=== PATIENT | female | born 1990 | race Caucasian/White ===

== ENCOUNTER 2017-08-02 20:03 | Emergency (ER) | payer OTHER ==
[~2017-08-02] VITALS: Ht 165.1 cm; Wt 99.8 kg
[~2017-08-02 20:03] MED LIST: BENADRYL25 MG PO; PEPCID20 M1 PO; PREDNISONE10 M2 PO
[2017-08-02 20:28] VITALS: BP 119/79
== END 2017-08-02 22:21 | disposition admitted as inpatient to this hospital (09) ==
LOC: ERH 20:03
DX: R10.2 Pelvic and perineal pain (principal)
CPT/HCPCS: 81003; 81025; 99281